=== PATIENT | female | born 2000 | race Caucasian/White ===

== ENCOUNTER 2022-08-30 22:59 | Emergency (ER) | payer SELFPAY ==
[2022-08-31] MEDS ORDERED: Diazepam 10 MG/2 ML SYRINGE ONE (00:35)
[2022-08-31] MEDS ORDERED: diphenhydrAMINE 50 MG/ML VIAL ONE (00:52)
== END 2022-08-31 01:12 | disposition home or self-care (01) ==
LOC: CSHERS 22:59
DX: T40.711A Poisoning by cannabis, accidental (unintentional), initial encounter (principal)
CPT/HCPCS: 93005; 96361; 96374; J1200; J3360